=== PATIENT | female | born 1980 | race Caucasian/White ===

== ENCOUNTER 2017-03-22 08:21 | Emergency (ER) | payer SELFPAY ==
[2017-03-22 08:53] VITALS: BMI 25.6
--- NOTE | 2017-03-22 09:27 | PDOC ---
History of Present Illness - General History Source: Patient Exam Limitations: No Limitations - History of Present Illness Initial Comments: 03/22/17 09:30 The patient is a 36-year-old woman, M1, estimated 5-6 weeks , with no past medical history who presents to the emergency department via walk-in for further evaluation of vaginal bleeding this morning. Patient has not seen her Mesmerist since discovering her new by a positive home test. She states that thus morning, she noted extensive vaginal bleeding, as she saturated approximately 6 pads within a 15 minute time frame. She also reports noting clots. She currently feels dizzy and abdominal cramping. Patient had a miscarriage last year. LMP was She denies fever, chills, diaphoresis, generalized weakness. She denies chest pain, shortness of breath, cough She denies nausea, vomiting, diarrhea, dysuria, hematuria, urinary frequency and urgency, flank pain. Allergies: No Known Drug Allergies. Past Surgical History: None reported Social History: No tobacco, EtOH and recreational drug use Mesmerist: Dr. Swenson at [address] [place] [address]. <Staci Russell - Last Filed: 03/22/17 11:39> - General History Source: Patient Exam Limitations: No Limitations <Maria G Bean - Last Filed: 03/22/17 13:07> - General Chief Complaint: Vaginal Bleeding Stated Complaint: VAGINAL BLEEDING Time Seen by Provider: 03/22/17 09:24 Past History <Staci Russell - Last Filed: 03/22/17 11:39> - Past Medical History Other medical history: none - Psycho/Social/Smoking Cessation Hx Anxiety: No Suicidal Ideation: No Smoking History: Never smoked Have you smoked in the past 12 months: No Information on smoking cessation initiated: No Hx Alcohol Use: No Drug/Substance Use Hx: No Substance Use Type: None <Maria G Bean - Last Filed: 03/22/17 13:07> - Past Medical History Allergies/Adverse Reactions: Allergies Allergy/AdvReac Type Severity Reaction Status Date / Time No Known Allergies Allergy Verified 03/22/17 08:49 Home Medications: Ambulatory Orders Acetaminophen [Tylenol -] 1,000 mg PO Q8H #20 tablet 03/22/17 Ondansetron HCl [Zofran] 4 mg PO BID PRN #30 tablet 03/22/17 Review of Systems - Review of Systems Able to Perform ROS?: Yes Comments:: 03/22/17 09:30 GENERAL/CONSTITUTIONAL: No: fever, chills, weakness, loss of appetite. HEAD, EYES, EARS, NOSE AND THROAT: No: change in vision, ear pain, discharge, sore throat, throat swelling. CARDIOVASCULAR: Yes: Dizziness. No: chest pain, palpitations, syncope RESPIRATORY: No: cough, shortness of breath, wheezing, hemoptysis, stridor. GASTROINTESTINAL: Yes: Abdominal cramping. No: nausea, vomiting, abdominal cramping, diarrhea, rectal bleeding, constipation. GENITOURINARY: Yes: Vaginal bleeding. No: dysuria, hematuria, frequency, urgency , flank pain. MUSCULOSKELET AL: No: back pain, neck pain, joint pain, muscle swelling or pain SKIN AND BREASTS: No: lesions, pallor, rash or easy bruising. NEUROLOGIC: No: headache, vertigo, paresthesias, weakness ENDOCRINE: No: unexplained weight gain or loss HEMATOLOGIC/LYMPHATIC: No: anemia, easy bleeding, swelling nodes <Staci Russell - Last Filed: 03/22/17 11:39> *Physical Exam - Vital Signs Last Vital Signs Temp Pulse Resp BP Pulse Ox 97.9 F 85 18 111/68 100 03/22/17 08:50 03/22/17 08:50 03/22/17 08:50 03/22/17 08:50 03/22/17 08:50 - Physical Exam Comments: 03/22/17 09:30 GENERAL: The patient is in no acute distress. HEAD: Normal with no signs of trauma. EYES: PERRLA, EOMI, sclera anicteric, conjunctiva clear. ENT: Ears normal, nares patent, oropharynx clear without exudates. Moist mucous membranes. NECK: Normal range of motion, supple without lymphadenopathy, JVD, or masses. LUNGS: Breath sounds equal, clear to auscultation bilaterally. No wheezes, and no crackles. HEART:Regular rate and rhythm, normal S1 and S2 without murmur, rub or gallop. ABDOMEN: Soft, nontender, normoactive bowel sounds. No guarding, no rebound. EXTREMITIES: Normal range of motion, no edema. No clubbing or cyanosis. No erythema, or tenderness. NEUROLOGICAL: Cranial nerves II through XII grossly intact. Normal speech. No focal neurological deficits. MUSCULOSKELETAL: Back non-tender to palpation, no CVA tenderness SKIN: Warm, Dry, normal turgor, no rashes or lesions noted. <Russell,Staci - Last Filed: 03/22/17 11:39> - Vital Signs Last Vital Signs Temp Pulse Resp BP Pulse Ox 97.9 F 85 18 111/68 100 03/22/17 08:50 03/22/17 08:50 03/22/17 08:50 03/22/17 08:50 03/22/17 08:50 <Maria G Bean - Last Filed: 03/22/17 13:07> ED Treatment Course - LABORATORY CBC & Chemistry Diagram: 03/22/17 09:57 - RADIOLOGY Radiograph Interpretation: 03/22/17 11:39 EXAM: US/TRANSVAGINAL US PREG / US/PELVIC / BLADDER US Interpreted by Dr. Deloris Brian, IMPRESSION: Ultrasound of the pelvis is performed with transabdominal and transvaginal technique. Pelvic duplex is also performed. Transabdominal exam: Uterus measures 9.9 x 5.5 x 6 cm. Transvaginal exam: There is an intrauterine with gestational sac measuring consistent with 5 week 4 day gestation. pole is not visualized at this time. Yolk sac measures 2.8 mm. The right ovary measures 2.4 cm in length with a small amount of free fluid adjacent to the right adnexa. Left ovary measures 3.5 cm and contains a cyst measuring up to 1.9 cm. There is some free fluid adjacent to the left adnexa. Pelvic duplex: Arterial flow is seen to both ovaries. <YvonneStaci - Last Filed: 03/22/17 11:39> - LABORATORY CBC & Chemistry Diagram: 03/22/17 09:57 <Maria G Bean - Last Filed: 03/22/17 13:07> Medical Decision Making - Medical Decision Making 03/22/17 09:27 A portion of this note was documented by scribe services under my direction. I have reviewed the details of the note, within reason, and agree with the documentation with the following case summary and management plan written by me. Nursing documentation reviewed and incorporated into medical decision making This is a approximately 5 weeks by dates Presents to the ER with a complaint of heavy vaginal bleeding which began this morning at 7 am initially, no abdominal pain Now with lower abdominal crampy pain Rated 6/10 Pt feels weak She had a mis carriage last year Bled for 2 weeks 03/22/17 12:33 Laboratory Tests 03/22/17 03/22/17 03/22/17 09:57 09:57 09:57 WBC 15.5 H Hgb 11.6 Hct 35.1 Plt Count 331 Beta HCG, Quant 3068.3 Blood Type O POSITIVE Case reviewed with Dr. Richards: He states patient is miscarrying, and is passing a fetus on her own. This is an inevitable AB <Maria G Bean - Last Filed: 03/22/17 13:07> *DC/Admit/Observation/Transfer - Attestations Scribe Attestion: 03/22/17 09:30 Documentation prepared by Staci Russell, acting as medical assistant secretary for Maria G Bean MD. <Staci Russell - Last Filed: 03/22/17 11:39> - Discharge Dispostion Admit: No <Maria G Bean - Last Filed: 03/22/17 13:07> Diagnosis at time of Disposition: Inevitable - Discharge Dispostion Disposition: HOME Condition at time of disposition: Stable - Prescriptions Prescriptions: Acetaminophen [Tylenol -] 1,000 mg PO Q8H #20 tablet Ondansetron HCl [Zofran] 4 mg PO BID PRN #30 tablet PRN Reason: Nausea - Referrals Referrals: Alfred Richards MD [Staff Physician] - - Patient Instructions Printed Discharge Instructions: DI for Miscarriage, Dealing With Miscarriage Additional Instructions: Thank you for coming in to the ER today Please return to the ER for havy vaginal bleeding, saturating 2 pads per hour x 2 hours, weakness or lightheadedness Please follow up with your physician gynecologist as we discussed
[2017-03-22] MEDS ORDERED: SODIUM CHLORIDE 1,000 ML IV SCH (09:45)
[2017-03-22] MEDS ORDERED: ONDANSETRON 4 MG/2 ML VIAL ONE (09:47)
[2017-03-22] MEDS ORDERED: ONDANSETRON 4 MG/2 ML VIAL IVPUSH ONE (09:56)
[2017-03-22 10:46] LABS: BASOPHIL 0.3 % (0-2.0); EOSINOPHIL 0.2 % (0-4.5); MCH 28.5 pg (25.7-33.7); MEAN CELL VOLUME 86.3 fl (80-96); MEAN PLT VOLUME 7.9 fl (7.5-11.1); NEUTROPHILS 84.4 % (42.8-82.8); PLATELET COUNT 331 K/MM3 (134-434); RDW 14.9 % (11.6-15.6); WHITE BLOOD COUNT 15.5 K/mm3 (4.0-10.0)
[2017-03-22 12:01] VITALS: TEMP 98.4
[2017-03-22 14:02] VITALS: BP 117/68; PULSE 90
== END 2017-03-22 13:51 | disposition home or self-care (01) ==
LOC: JER 08:21
PROC: 3E0337Z Introduction of Electrolytic and Water Balance Substance into Peripheral Vein, Percutaneous Approach (ICD-10-PCS; principal; 2017-03-22)
PROC: 3E033GC Introduction of Other Therapeutic Substance into Peripheral Vein, Percutaneous Approach (ICD-10-PCS; 2017-03-22)
DX: O34.81 Maternal care for other abnormalities of pelvic organs, first trimester (principal); N83.292 Other ovarian cyst, left side; Z3A.01 Less than 8 weeks gestation of pregnancy
CPT/HCPCS: 36415; 76817-TC; 76856-TC; 84702; 85025; 86850; 86900; 86901; 99285-25